=== PATIENT | male | born 1945 | race Caucasian/White ===

== ENCOUNTER 2017-04-08 06:50 | Outpatient (CLI) ==
--- NOTE | 2017-04-08 10:53 | MRI ---
EXAM: MRI right shoulder without contrast COMPARISON: None available. HISTORY: Right shoulder pain. TECHNIQUE: Multiplanar noncontrast MR images of the right shoulder were acquired using a 1.2 Charmaine magnet. The sagittal T2W sequence was repeated due to patient motion artifact. FINDINGS: No recent radiographs of the right shoulder are available for comparison and radiographic correlation is recommended. There is moderate subscapularis and supraspinatus tendinosis with minimal infraspinatus tendinosis. Minimal bursal surface fraying of the supraspinatus from the level of the acromion through the inse rtional fibers. Small partial-thickness/intrasubstance tear of the distal subscapularis. No full-t hickness rotator cuff tear or tendon retraction. No significant fluid in the subacromial/subdeltoid bursa. Limited assessment glenoid labrum on this non arthrographic study. Linear hyperintense signal withi n the substance of the superior/posterosuperior glenoid labrum extending along the chondrolabral miquel ction extending peripherally as seen on the coronal sequences which may represent a small tear. Que stion sublabral foramen (anatomic variant) at the level of the anterosuperior labrum. Mild glenohum eral joint osteoarthrosis without acute fracture dislocation. Small joint effusion. The long head of the biceps is located within the bicipital groove with tendinosis/partial tear and tenosynovitis. Moderate hypertrophic degenerative changes of the acromioclavicular joint with some lateral downslop ing of the acromion resulting mild distortion of the underlying supraspinatus. No evidence of an os acromiale or abnormal widening of the acromioclavicular joint space. Mild diffuse muscle atrophy. No soft tissue mass identified. IMPRESSION: 1. Moderate rotator cuff tendinosis. Bursal surface fraying of the supraspinatus as well as a smal l partial-thickness/intrasubstance tear of the distal subscapularis. No full-thickness rotator cuff tear or tendon retraction. 2. Findings concerning for a tear of the superior to posterior glenoid labrum on this non arthrogra phic study. Question sublabral foramen versus anterior extension of a tear at the level of the ante rosuperior labrum. Correlate clinically and consider MR arthrography. 3. Tendinosis/partial tear and tenosynovitis of the long head biceps. 4. Hypertrophic degenerative changes of the acromioclavicular joint representing potential source o f subacromial impingement.
== END 2017-04-08 06:51 | disposition home or self-care (01) ==
LOC: RAD 06:50
PROVIDERS: ATTEND Internal Medicine
DX: M25.511 Pain in right shoulder (principal)

== ENCOUNTER 2017-07-09 14:27 | Outpatient (CLI) ==
--- NOTE | 2017-07-09 15:05 | DI ---
EXAM: Radiographs, left knee HISTORY: Left knee pain. COMPARISON: None available. TECHNIQUE: Two views. FINDINGS: Bone mineralization is normal. There is no fracture or dislocation. The joint spaces are maintained. Minimal posterior patellar marginal osteophyte formation noted. No focal soft tissue a bnormality is seen. IMPRESSION: Minimal patellofemoral osteoarthritis.
--- NOTE | 2017-07-09 15:05 | DI ---
EXAM: Left hip, two views, 07/09/2017 HISTORY: Pain COMPARISON: None. FINDINGS / IMPRESSION: Surgical clips are present in the projection of the left lower pelvis. Mild osteoarthritic degenerative change of the left hip. Joint space narrowing with osteophyte forma tion. Normal anatomic alignment is maintained. There is no fracture or dislocation No acute osseous abnormality.
== END 2017-07-09 14:28 | disposition home or self-care (01) ==
LOC: RAD 14:27
PROVIDERS: ATTEND Internal Medicine
DX: M25.562 Pain in left knee (principal); M25.552 Pain in left hip

== ENCOUNTER 2018-07-23 06:45 | Outpatient (CLI) | END 2018-07-23 06:46 | disposition home or self-care (01) | LOC: CAR 06:45 | PROVIDERS: ATTEND Internal Medicine | DX: R06.02 Shortness of breath (principal); R07.9 Chest pain, unspecified | CPT/HCPCS: 93005; 93010 ==

== ENCOUNTER 2018-07-24 06:33 | Outpatient (CLI) ==
--- NOTE | 2018-07-24 10:13 | STECHOSEST ---
Date of Test: 07/24/18 Ordering Physician: DR. BIANKA ENGLAND Occupation : RETIRED Reason for Exam: SOB, CHEST PAIN, CABG 2002 Height: 67" Weight: 158 LBS Current Medications: PRAVASTATIN, NORVASC, ZIAC, LOSARTAN, METFORMIN Resting EKG: SINUS RHYTHM/ NO ACUTE CHANGES Target Heart Rate: 124/146 S-T SEGMENT STAGE MPH/GRADE HEART RATE BPM BLOOD PRESSURE mmhg RHYTHM +/- ELEVATION DEPRESSION SYMPTOMS At Rest 60 BPM 132/84 SR X NONE 1 1.7/10% 100 BPM SR X NONE 2 2.5/12% 118 BPM SR X NONE 3 3.4/14% 4 4.2/16% 5 5.0/18% Immediately after 125 BPM 138/60 BPM SR X NONE Minutes Post Exercise 7:00 69 BPM 138/74 MMHG SR X NONE Minutes Post Exercise Total Time: 6:23 Maximum Heart Rate Reached: 125 BPM Reason for Termination: ACHIEVED TARGET HR 95% Oxygen saturation on room air with exercises MET.S 8.1 INTERPRETATION 1. NO EVIDENCE OF ISCHEMIA BY ST-T WAVE 2. NO CHEST PAIN OR DISCOMFORT 3. BLOOD PRESSURE RESPONSE: NORMAL AT REST AND POST EXERCISE 4. LESS ISOLATED PVC'S WITH EXERCISE SESTAMIBI TO FOLLOW MTDD
--- NOTE | 2018-07-24 10:20 | ECHO2D ---
Date of Exam: 07/24/18 Ordering Physician: DR. BIANKA ENGLAND Room #: OP Reason for Echo: SOB, CHEST DISCOMFORT M-Mode Normal Adult Results LV Dimensions Normal Adult Results AoV Opening excursions >1.6 >1.6 LVEDD-base- 3.5-5.8 4.6 Ao root dimensions 2.0-3.7 3.3 LVESD-base- 3.1-4.6 L. Atrium dimensions 1.9-3.8 4.3 Post. Wall thickness 0.8-1.1 1.1 IV septum (thickness) 0.7-1.2 1.2 Post. Wall excursion 0.72-1.3 NORMAL Septal motion NORMAL Systolic motion R. Ventricular cavity 1.5-2.0 NORMAL LVEF 60% 60% Paradoxical septal wall motion NORMAL 2-D : 2-D M Mode Echocardiogram was performed using apical four chamber and left parasternal long and short axis views. Mitral, tricuspid and aortic valves appear to be normal. Contractility of the left ventricle seems to be normal, so is the cavity size. ENLARGED LEFT ATRIAL CAVITY. Aortic root appears to be normal. There is no pericardial effusion. There is no thrombus noted in the left ventricular or left aortic cavity. No mitral valve prolapse noted. M-MODE: MV: NORMAL AV: NORMAL TV: NORMAL PV: CHAMBER SIZE: ENLARGED LEFT ATRIAL CAVITY WALL MOTION: NORMAL PERICARDIUM: NORMAL INTERPRETATION: 1. BORDERLINE LEFT VENTRICULAR HYPERTROPHY 2. NORMAL VALVES 3. NORMAL LEFT VENTRICULAR CONTRACTILITY MTDD
--- NOTE | 2018-07-24 11:02 | NM ---
EXAM: Myocardial perfusion imaging HISTORY: Chest pain and shortness of breath COMPARISON: None. TECHNIQUE: Patient was injected 11.5 mCi of Tc99m Sestamibi intravenously while at rest. SPECT imagi ng of the heart was acquired. Patient was stressed on a treadmill using Gerald protocol and at peak ex ercise injected 30.2 mCi of Tc99m Sestamibi intravenously. Another SPECT imaging of the heart was ac quired. Gated cardiac study was performed. FINDINGS: Post stress study shows normal left ventricular cavity size. Radioisotope distribution is homogeneous in the left ventricle myocardium. No evidence of exercise induced reversible ischemia. No fixed defect is visualized. The left ventricular ejection fraction is 67% and wall motion is norm al. IMPRESSION: Normal study
--- NOTE | 2018-07-27 09:53 | ECHOSTRESS ---
Date of Exam: 07/24/18 Ordering Physician: DR. BIANKA ENGLAND Reason for Echo: SOB, CHEST PAIN, STRESS TEST--NO ISCHEMIA M-Mode Normal Adult Results LV Dimensions Normal Adult Results AoV Opening excursions >1.6 LVEDD-base- 3.5-5.8 Ao root dimensions 2.0-3.7 LVESD-base- 3.1-4.6 L. Atrium dimensions 1.9-3.8 Post. Wall thickness 0.8-1.1 IV septum (thickness) 0.7-1.2 Post. Wall excursion 0.72-1.3 Septal motion Systolic motion R. Ventricular cavity 1.5-2.0 LVEF 60% Paradoxical septal wall motion 2-D: NORMAL LEFT VENTRICULAR CONTRACTILITY--RESTING AND POST EXERCISE M-MODE: MV: AV: TV: PV: CHAMBER SIZE: WALL MOTION: NORMAL LEFT VENTRICULAR CONTRACTILITY--RESTING AND POST EXERCISE PERICARDIUM: INTERPRETATION: 1. NORMAL LEFT VENTRICULAR CONTRACTILITY--RESTING AND POST EXERCISE MTDD
== END 2018-07-24 06:34 | disposition home or self-care (01) ==
LOC: CAR 06:33
PROVIDERS: ATTEND Internal Medicine
DX: R06.02 Shortness of breath (principal); R07.9 Chest pain, unspecified

== ENCOUNTER 2018-11-23 14:51 | Outpatient (CLI) | payer OTHER | END 2018-11-23 14:52 | disposition home or self-care (01) | LOC: CAR 14:51 | PROVIDERS: ATTEND Psychiatry & Neurology Sleep Medicine | DX: G47.33 Obstructive sleep apnea (adult) (pediatric) (principal) | CPT/HCPCS: 95810 ==

== ENCOUNTER 2018-12-21 15:09 | Outpatient (CLI) | END 2018-12-21 15:10 | disposition home or self-care (01) | LOC: CAR 15:09 | PROVIDERS: ATTEND Psychiatry & Neurology Sleep Medicine | DX: G47.33 Obstructive sleep apnea (adult) (pediatric) (principal) | CPT/HCPCS: 95811 ==

== ENCOUNTER 2018-12-29 07:47 | Day surgery (SDC) ==
[2018-12-29 08:10] VITALS: TEMP 97
[2018-12-29] MEDS ORDERED: LIDOCAINE 1% 20 ML MDV ID STA (08:10)
[2018-12-29] MEDS ORDERED: DIPRIVAN 20 ML VIAL IVP ONE (09:55)
[2018-12-29] MEDS ORDERED: VERSED ONE (09:55)
--- NOTE | 2018-12-30 14:45 | OP ---
INDICATIONS FOR PROCEDURE: 73-year-old gentleman presents for a screening colonoscopy, last had a colonoscopy greater than 10 years ago. MEDICATIONS: SEE ANESTHESIA NOTES. PROCEDURE: COLONOSCOPY, SNARE POLYPECTOMY. REPORT: The risks, benefits, alternatives and limitations were discussed in detail with the patient. Informed consent was obtained. After adequate sedation was achieved, a digital rectal exam revealed good tone, no masses. The colonoscope was introduced into the rectum and advanced under direct visual guidance to the cecum. The cecum was identified by the appendiceal orifice and IC valve. In the cecum, there was a small 5 or 6 mm polyp that was sessile. I removed this by snare technique. I then slowly withdrew the scope in a circumferential manner examining the mucosa quite carefully. I looked on the proximal and distal side of folds and flexures as best as possible. I was able to retroflex the scope in the right colon and left colon to increase visualization. At the hepatic flexure on the distal side there was a 5 or 6 mm sessile polyp that I removed by snare technique. In the distal sigmoid there was a slightly raised 5 or 6 mm polyp and I removed it by snare technique. In the distal rectum there is a semi sessile 8 to 9 mm somewhat lobulated polyp - I removed this by snare technique. No other abnormalities were noted including on retroflex view of the anal canal. The prep was adequate. There was some mucusy adherent stool scattered throughout the colon, I washed and suctioned this off as best as possible. The withdrawal time was 10 minutes and 14 seconds. The patient tolerated the procedure well with stable vital signs and pulse oximetry throughout. IMPRESSION: 1. Four (4) polyps removed. RECOMMENDATIONS: 1. High fiber diet. 2. Office visit as needed. 3. Await polyp pathology, if everything is benign as expected, I recommend a repeat colonoscopy examination again in 3 years, sooner if signs or symptoms would indicate otherwise. CC: DR. SAMANTA MAXWELL
[2018-12-31 14:47] VITALS: BP 132/676
== END 2018-12-29 11:10 | disposition home or self-care (01) ==
LOC: SURG 07:47
PROVIDERS: ATTEND Internal Medicine Gastroenterology
DX: Z12.11 Encounter for screening for malignant neoplasm of colon (principal); K63.5 Polyp of colon; D12.0 Benign neoplasm of cecum; D12.7 Benign neoplasm of rectosigmoid junction; D12.4 Benign neoplasm of descending colon; D12.3 Benign neoplasm of transverse colon

== ENCOUNTER 2019-02-17 11:34 | Outpatient (CLI) ==
--- NOTE | 2019-02-17 17:03 | MRI ---
EXAM: MRI of the right hip without contrast COMPARISON: None available. HISTORY: Low back pain with radiation to the right lower extremity. Right hip pain. TECHNIQUE: Multiplanar noncontrast MR images of the pelvis/hips were acquired using a 1.2 Charmaine magn et. Large field of view imaging was employed on the axial and coronal sequences with inclusion both the right and left hips in the field of view with sagittal images obtained only through the right hip . The submitted images are mildly limited by patient motion artifact. Dedicated MRI of the lumbar s carlyle was also performed and that report will be dictated separately by different physician. FINDINGS: No recent radiographs of the pelvis/hips available for comparison and radiographic correla tion is recommended. There is marked intervertebral disc space narrowing with facet hypertrophy and levocurvature involvin g the visualized portions lower lumbar spine. Please see the separately dictated MRI of the lumbar s fernanda report. Mild to moderate degenerative changes of the hips bilaterally with joint space narrowing marginal ost eophytes. Small right hip pain and minimal left hip joint effusions, nonspecific. Mild to moderate degenerative changes of the sacroiliac joints without evidence of active sacroiliitis or ankylosis. Mild to moderate degenerative changes of the pubic symphysis. There is no evidence of an acute fract ure, osteomyelitis or osteonecrosis. Edema throughout the soft tissues overlying the greater trochanters bilaterally without a drainable g reater trochanteric bursal collection. There is hamstring tendinosis bilaterally which is more sever e on the right with superimposed partial-thickness tear of the right common hamstring tendon at its i schial tuberosity attachment. There is some edema throughout the adjacent soft tissues without a ful l-thickness tear or tendon retraction. Gluteus minimus tendinosis and enthesopathy bilaterally. Mil d diffuse muscle atrophy. There is marked enlargement of the prostate gland which measures 5.3 x 4.3 x 4.1 cm with heterogeneou s signal throughout the gland. No pathologically enlarged pelvic lymph nodes. The sciatic nerves ar e unremarkable in appearance throughout their visualized course bilaterally. Subcutaneous edema post eriorly. IMPRESSION: 1. No acute osseous injury. Mild to moderate degenerative changes as described. 2. Marked degenerative changes of the lower lumbar spine. Please see the separately dictated MRI burton ar spine report. 3. Small right hip and minimal left hip joint effusions, nonspecific. 4. Hamstring tendinosis bilaterally which is more severe on the right with partial-thickness tear of the right common hamstring tendon. No full-thickness tear or tendon retraction. Gluteus minimus te ndinosis and enthesopathy bilaterally. Mild diffuse muscle atrophy. 5. Marked enlargement of the prostate gland which is nonspecific and may be related to benign prosta tic hyperplasia though correlation with physical examination and prostate specific antigen levels is recommended.
--- NOTE | 2019-02-18 23:56 | MRI ---
EXAM: Lumbar spine MRI without contrast. HISTORY: Low back pain that radiates to right lower extremity. Right hip pain. COMPARISON: Lumbar spine MRI 12/16/[address] scan 12/23/2008. TECHNIQUE: Multiplanar, multisequence MR images were acquired of the lumbar spine without contrast. FINDINGS: Five non-rib bearing lumbar vertebra are present. Conus medullaris ends at L2 and has nor mal morphology and signal intensity. Canal diameter is developmentally narrow. There is mild mid burton mbar levoscoliosis centered at L3-4 and there is 2 mm retrolisthesis of L2 on L3, 1.5 mm retrolisthes is of L3 on L4 and 2 mm retrolisthesis of L4 on L5. The lumbar vertebra are normal in height. Intri nsic bone marrow signal is mildly heterogeneous with a small areas of bright T1 and T2 signal fatty i nfiltration. Small ventral and lateral endplate osteophytes are present and there are moderate to la rge left anterolateral endplate osteophytes at L1-2, moderate left anterolateral endplate osteophytes at L2-3, moderate right far lateral L4-5 and moderate left far lateral L5-S1 endplate osteophytes. There is a diffuse disc osteophyte complex that is asymmetric to the right at L3-4 and L4-5 with mode rate to marked right lateral disc space narrowing, mild to moderate right lateral and posterolateral endplate irregularity with small chronic Schmorl's nodes, type 2 endplate changes and disc desiccatio n with vacuum phenomenon. These findings have mild to moderately progressed at L4-5, compared to the 2012 MRI. At L5-S1, there is a diffuse disc osteophyte complex that is asymmetric to the left with moderate right and large left far lateral endplate osteophytes, mild diffuse endplate irregularity w ith marked disc space narrowing, disc desiccation, vacuum phenomenon and moderate midline and left la teral type 2 endplate changes. There is desiccation of the lumbar intervertebral discs and there is mild endplate irregularity with small chronic Schmorl's nodes at T12-L1, L1-2 and L2-3. Mild disc sp sunil narrowing is present at L2-3. The partially visualized liver, spleen, adrenal glands and right kidney are unremarkable. There is a probable small 3.8 mm left renal cyst. There are no paravertebral masses. Small osteophytes are pr esent along the anterior sacroiliac joints bilaterally. L1-2: There is a mild bilobed disc bulge that mildly effaces the left ventral thecal sac without spi nal stenosis. Neural foramina are patent. L2-3: There is retrolisthesis of L2 on L3 and there is a mild to moderate diffuse spondylotic disc b ulge that is is asymmetric to the left with a small to moderate central and left paracentral disc ext rusion with extension of the paracentral component 7 mm below the disc level and partially into the m idline superior endplate of L3. There is a left lateral/far lateral disc protrusion that narrows the inferior left neural foramen and encroaches on the exiting left L2 nerve. Mild bilateral facet and ligamentum flavum hypertrophy and small bilateral facet effusions are present. There is mild spinal stenosis, bilateral lateral recess stenosis, greater on the left and mild left and mild to moderate r ight neural foraminal stenosis. AP diameter of the thecal sac is 9.1 mm. L3-4: There is a moderate diffuse disc osteophyte complex that is asymmetric to the right and mild b ilateral facet and ligamentum flavum hypertrophy. There is a moderate right posterolateral disc extr usion with 1.1 cm inferior migration in the right lateral recess. This compresses the descending rig ht L4 nerve roots. There is mild spinal stenosis, right lateral recess stenosis and mild left and mo derately severe right neural foraminal stenosis with compression of the traversing right L3 nerve. A P diameter of the thecal sac is 8 mm. L4-5: There is a moderate diffuse disc osteophyte complex that is asymmetric to the right which encr oaches on the right L4 nerve exiting the neural foramen and there is a small central and right parace ntral disc protrusion that extends to the medial right neural foramen. Moderate bilateral hypertroph ic facet arthropathy and ligamentum flavum hypertrophy is present, greater on the right. This causes moderately severe spinal stenosis, bilateral lateral recess stenosis with encroachment on the L5 ner ve roots and mild to moderate left and moderate right neural foraminal stenosis with encroachment on the traversing right L4 nerve. AP diameter of the thecal sac is 5.3 mm. L5-S1: There is a moderate diffuse disc osteophyte comple that narrows the inferior neural foramina b ilaterally and encroaches on both exiting L5 nerves, greater on the left. There is a small to modera te central disc protrusion. These findings cause mild to moderate right and moderately severe left n eural foraminal stenosis with encroachment on the traversing left L5 nerve. There is no central samson l stenosis. IMPRESSION: 1. Moderate lumbar degenerative spondylosis most significant from L3-4 to L5-S1 which has mild to mo derately progressed at L4-5 compared to the prior MRI. 2. Small to moderate central/left paracentral disc extrusion L2-3, small left lateral/far lateral di sc protrusion L2-3 that encroaches on the left L2 nerve exiting the neural foramen, small central/rig ht paracentral disc protrusion L4-5, small to moderate central disc protrusion L5-S1 and moderate rig ht posterolateral disc extrusion L3-4 that encroaches on the descending right L4-8 nerve roots. 3. Mild rotatory mid lumbar levoscoliosis centered at L3-4. 4. Mild spinal stenosis L2-3 and L3-4 and moderately severe spinal stenosis L4-5. 5. Multilevel foraminal stenosis.
== END 2019-02-17 11:35 | disposition home or self-care (01) ==
LOC: RAD 11:34
PROVIDERS: ATTEND Internal Medicine
DX: M54.5 Low back pain (principal); M25.551 Pain in right hip

== ENCOUNTER 2019-02-24 08:30 | Outpatient (CLI) | payer OTHER ==
--- NOTE | 2019-02-24 10:05 | DI ---
EXAM: Double contrast upper GI HISTORY: Dysphagia. Technique: Patient was given gas crystals. Patient was then given oral barium and multiple spot gifty ms of the esophagus, stomach and duodenum were obtained in various projections. Findings: The course and caliber of the esophagus are within normal limits. No mucosal lesions or f illing defects identified. Small inconsistent hiatal hernia. Gastroesophageal reflux was observed. The contour of the stomach is within normal limits. No obvious gastric ulceration identified. The c ourse and caliber of the duodenum is within normal limits with no wall thickening. 2 cm duodenal div erticulum. No extravasation of contrast material. No gastric outlet obstruction. Impression: 1. Small inconsistent hiatal hernia and gastroesophageal reflux. 2. Duodenal diverticulum
== END 2019-02-24 08:31 | disposition home or self-care (01) ==
LOC: RAD 08:30
PROVIDERS: ATTEND Internal Medicine
DX: R13.10 Dysphagia, unspecified (principal)

== ENCOUNTER 2019-03-08 08:31 | Outpatient (CLI) ==
--- NOTE | 2019-03-08 09:40 | US ---
EXAM: Bilateral carotid artery Doppler History: Carotid stenosis and dizziness. Comparison: Carotid Doppler 08/30/2011 Technique: Multiple sonographic images through the bilateral internal carotid arteries were obtained . Color duplex Doppler was used to interrogate vascular flow. Findings: The right ICA peak systolic velocity is within normal limits measuring 48 cm/sec. The right ICA/cca PSV ratio is normal at 0.60. The right vertebral artery is patent and demonstrates antegrade flow. Mullins scale images demonstrate mild plaque buildup within the right internal carotid artery. The left ICA peak systolic velocity is within normal limits measuring 71 cm/sec. The left ICA/cca PS V ratio is normal at 1.0. The left vertebral artery is patent and demonstrates antegrade flow. Mullins scale images demonstrate mild plaque buildup within the left internal carotid artery Impression: No significant hemodynamic stenosis of the bilateral internal carotid arteries
== END 2019-03-08 08:32 | disposition home or self-care (01) ==
LOC: RAD 08:31
PROVIDERS: ATTEND Internal Medicine
DX: R42 Dizziness and giddiness (principal); I65.29 Occlusion and stenosis of unspecified carotid artery

== ENCOUNTER 2019-05-18 11:00 | Outpatient (RCR) | payer OTHER ==
--- NOTE | 2019-04-22 12:06 | RS.OPPTDN ---
Subjective Date of Note: 04/22/19 Visit #: 4 Number of visits approved by Insurance: na Date of Evaluation: 04/14/19 Payer Source: MEDICARE Treatment Diagnosis: Low back pain, right LE pain Current Subjective/complaints:: Pt reports significant improvement in pain after last session. States he did more driving yesterday without increased back or right hip pain. States he is working on HEP. Pain Assessment - Pain Description Pain Location: lowback, right hip/ischial tub area Pain Description: Aching Current Pain Intensity: mild Worst Pain Intensity: mod with activity - Treatment Modality: US with ES (Comb.) Parameters/Method Applied: [id number] total. US at 1.5w/cm2 and ES to 21p.v. [id number] to the bilateral lumbar paraspinals, then US at 1.5w/cm2 and ES to 11- 13p.v. to the right mid glut to the origin of the hamstring prior to EX. Patient Position: Left Sidelying - Heat/Cryotherapy Treatment: Hot Pack ([id number] to the lowback and right prox hamstring. ) Interventions - Exercise/Activities/Manual Therapy Exercises/Activities: [id number] Assisted stretching of the bilateral hamstrings, SKTC, DKTC, LTR. Also, piriformis and figure 4 hip stretch. Total minutes of Exercise: 10mins Manual Therapy: NA HOME EXERCISE PROGRAM: stretching of bilateral hamstrings, SKTC, DKTC, LTR, and pelvic tilts. - Charges Timed Code Treatment Minutes: 34mins Total Treatment Time: 54mins Procedures billed for this date of service:: HP, USCOM, EX Assessment: Patient reporting significant improvement in pain following last session. Patient Education: Home Exercise Program Patient demonstrates compliance with HEP?: Yes Short Term Goals Goal #1: Patient independent and compliant with HEP. Goal to be met by: 04/28/19 Progress towards Goal:: Progressing Goal #2: Muscle tone of lumbar paraspinals decreased to moderate. Goal to be met by: 04/28/19 Goal #3: Low back pain less than constant. Goal to be met by: 04/29/19 Goal #4: Bilateral SLR to 35-40 degrees. Goal to be met by: 04/29/19 Jail Goals Goal #1: Pt knows HEP and to continue ex's to maintain functional level at D/c. Goal to be met by: 05/19/19 Goal #2: Score on Oswestry LBP improved to 20 Goal to be met by: 05/19/19 Goal #3: Pt able to walk community distances with minimal pain in low back/ right LE. Goal to be met by: 05/19/19 Goal #4: Pt to demo good understanding of body mechanics and back safety. Goal to be met by: 05/19/19 Plan Dates of Clothing Sorter Goals: 05/19/19 Expiration date of current Insurance Approval:: 05/19/19 PLAN: Continue modalities and progress exercise to reduce pain and increase functional activity.
--- NOTE | 2019-04-27 10:55 | RS.OPPTDN ---
Subjective Date of Note: 04/27/19 Visit #: 5 Number of visits approved by Insurance: na Date of Evaluation: 04/14/19 Payer Source: MEDICARE Treatment Diagnosis: Low back pain, right LE pain Current Subjective/complaints:: Reports significant reduction in back and right glut area pain. States he has not been mehta-hogging the last few days. Pain Assessment - Pain Description Pain Location: lowback and right glut area at hamstring origin. Pain Description: Aching Current Pain Intensity: mild - Treatment Modality: US with ES (Comb.) Parameters/Method Applied: [id number] total. US at 1.5w/cm2 and Estim 12p.v. to the bilateral lumbar paraspinals [id number], then right glut region US at 1.5w/cm2 and Estim at 14p.v. to the right glut region x8mins. Patient Position: Left Sidelying - Heat/Cryotherapy Treatment: Hot Pack ([id number] to the lowback and right gluteal region prior to USCOM and EX. Patient in supine. ) Interventions - Exercise/Activities/Manual Therapy Exercises/Activities: [id number] Assisted stretching of the bilateral hamstrings, SKTC, DKTC, LTR, piriformis, and figure 4 hip stretch. Isometric hip add and glut sets. Total minutes of Exercise: 13mins Manual Therapy: NA HOME EXERCISE PROGRAM: stretching of bilateral hamstrings, SKTC, DKTC, LTR, and pelvic tilts. - Charges Timed Code Treatment Minutes: 31mins Total Treatment Time: 50mins Procedures billed for this date of service:: HP, USCOM, EX Assessment: Patient progressing with HEP and reports pain reduction. Patient Education: Body/Joint mechanics, Home Exercise Program Patient demonstrates compliance with HEP?: Yes Short Term Goals Goal #1: Patient independent and compliant with HEP. Goal to be met by: 04/28/19 Progress towards Goal:: Progressing Goal #2: Muscle tone of lumbar paraspinals decreased to moderate. Goal to be met by: 04/28/19 Goal #3: Low back pain less than constant. Goal to be met by: 04/29/19 Progress towards Goal:: Progressing Goal #4: Bilateral SLR to 35-40 degrees. Goal to be met by: 04/29/19 Intermediate Goals Goal #1: Pt knows HEP and to continue ex's to maintain functional level at D/c. Goal to be met by: 05/19/19 Progress towards goal: Progressing Goal #2: Score on Oswestry LBP improved to 20 Goal to be met by: 05/19/19 Goal #3: Pt able to walk community distances with minimal pain in low back/ right LE. Goal to be met by: 05/19/19 Progress towards goal: Progressing Goal #4: Pt to demo good understanding of body mechanics and back safety. Goal to be met by: 05/19/19 Plan Dates of Cloud Consultant Goals: 05/19/19 Expiration date of current Insurance Approval:: 05/19/19 PLAN: Continue modalities and progress exercise to reduce pain and increase functional activity level.
--- NOTE | 2019-04-29 12:50 | RS.OPPTDN ---
Subjective Date of Note: 04/29/19 Visit #: 6 Number of visits approved by Insurance: na Date of Evaluation: 04/14/19 Payer Source: MEDICARE Treatment Diagnosis: Low back pain, right LE pain Current Subjective/complaints:: Patient reports his LB and right glut/upper HS pain has continued to improved. Patient states he is walking more and noticing less tension in the lowback or pain int he right hip/glut. Pain Assessment - Pain Description Pain Location: back and right glut/HS origin Current Pain Intensity: LB 2-3/10, right glut area 5/10 - Treatment Modality: US with ES (Comb.) Parameters/Method Applied: 16mins total. US at 1.5w/cm2 and ES at 12-14 p.v. to bilateral lumbar paraspinals and to the right glut area with focus at piriformis insersion. Patient Position: Left Sidelying - Heat/Cryotherapy Treatment: Hot Pack ([id number] to the LB and right glut/HS origin area prior to USCOM. Patient in supine. ) Interventions - Exercise/Activities/Manual Therapy Exercises/Activities: [id number] Assisted stretching of the bilateral hamstrings, SKTC, DKTC, LTR, and piriformis stretch. Isometric hip add and glut sets. Began bridging. Total minutes of Exercise: 10mins Manual Therapy: NA HOME EXERCISE PROGRAM: stretching of bilateral hamstrings, SKTC, DKTC, LTR, and pelvic tilts. Bridging. - Charges Timed Code Treatment Minutes: 10mins Total Treatment Time: 40mins Procedures billed for this date of service:: HP, USCOM, EX Assessment: Patient progressing well with reports of pain reduction and increase in functional activity level. Patient Education: Home Exercise Program Comments: Began patient education of body mechanics. Patient demonstrates compliance with HEP?: Yes Short Term Goals Goal #1: Patient independent and compliant with HEP. Goal to be met by: 04/28/19 Progress towards Goal:: Progressing Goal #2: Muscle tone of lumbar paraspinals decreased to moderate. Goal to be met by: 04/28/19 Progress towards Goal:: Progressing Goal #3: Low back pain less than constant. Goal to be met by: 04/29/19 Progress towards Goal:: Progressing Goal #4: Bilateral SLR to 35-40 degrees. Goal to be met by: 04/29/19 Progress towards Goal:: Progressing Snf Goals Goal #1: Pt knows HEP and to continue ex's to maintain functional level at D/c. Goal to be met by: 05/19/19 Progress towards goal: Progressing Goal #2: Score on Oswestry LBP improved to 20 Goal to be met by: 05/19/19 Goal #3: Pt able to walk community distances with minimal pain in low back/ right LE. Goal to be met by: 05/19/19 Progress towards goal: Progressing Goal #4: Pt to demo good understanding of body mechanics and back safety. Goal to be met by: 05/19/19 Progress towards goal: Progressing Plan Dates of Airborne Weapons Technical Manager Goals: 05/19/19 Expiration date of current Insurance Approval:: 05/19/19 PLAN: Continue modalities and progress exercise to increase functional mobility and activity level.
--- NOTE | 2019-05-04 12:08 | RS.OPPTDN ---
Subjective Date of Note: 05/04/19 Visit #: 7 Number of visits approved by Insurance: na Date of Evaluation: 04/14/19 Payer Source: MEDICARE Treatment Diagnosis: Low back pain, right LE pain Current Subjective/complaints:: Billy reports seeing a lot of progress over the last few days. States he has been able to do more driving and do some mehta- hogging without aggravating his pain. Pain Assessment - Pain Description Pain Location: right lowback and gluteal area at ischial tuberosity Current Pain Intensity: mild, no pain following treatment and exercise. - Treatment Modality: US with ES (Comb.) Parameters/Method Applied: [id number] with US at 1.5w/cm2 and Estim to 13-15p.v. to the right LB and into gluteal region. Patient Position: Left Sidelying - Heat/Cryotherapy Treatment: Hot Pack ([id number] to the LB and right gluteal region and HS origin. Patient in supine. ) Interventions - Exercise/Activities/Manual Therapy Exercises/Activities: [id number] Assisted stretching of the bilateral hamstrings, SKTC, DKTC, LTR, and piriformis stretch. Isometric hip add, alt hip flexion, isometric hip flexion, and glut sets. Bridging. Total minutes of Exercise: 16mins Manual Therapy: NA HOME EXERCISE PROGRAM: stretching of bilateral hamstrings, SKTC, DKTC, LTR, and pelvic tilts. Bridging. - Charges Timed Code Treatment Minutes: 16mins Total Treatment Time: 42mins Procedures billed for this date of service:: HP, USCOM, EX Assessment: Patient reporting significant progress with treatment. States he is doing more functional daily activities without increased pain. Patient Education: Home Exercise Program Patient demonstrates compliance with HEP?: Yes Short Term Goals Goal #1: Patient independent and compliant with HEP. Goal to be met by: 04/28/19 Progress towards Goal:: Progressing Goal #2: Muscle tone of lumbar paraspinals decreased to moderate. Goal to be met by: 04/28/19 Progress towards Goal:: Progressing Goal #3: Low back pain less than constant. Goal to be met by: 04/29/19 Progress towards Goal:: Progressing Goal #4: Bilateral SLR to 35-40 degrees. Goal to be met by: 04/29/19 Progress towards Goal:: Progressing Land Examiner Goals Goal #1: Pt knows HEP and to continue ex's to maintain functional level at D/c. Goal to be met by: 05/19/19 Progress towards goal: Progressing Goal #2: Score on Oswestry LBP improved to 20 Goal to be met by: 05/19/19 Goal #3: Pt able to walk community distances with minimal pain in low back/ right LE. Goal to be met by: 05/19/19 Progress towards goal: Progressing Goal #4: Pt to demo good understanding of body mechanics and back safety. Goal to be met by: 05/19/19 Progress towards goal: Progressing Plan Dates of Land Examiner Goals: 05/19/19 Expiration date of current Insurance Approval:: 05/19/19 PLAN: Progress exercise to reduce pain and return patient to PLOF.
--- NOTE | 2019-05-06 14:22 | RS.OPPTDN ---
Subjective Date of Note: 05/06/19 Visit #: 8 Number of visits approved by Insurance: na Date of Evaluation: 04/14/19 Payer Source: MEDICARE Treatment Diagnosis: Low back pain, right LE pain Current Subjective/complaints:: Patient reports some increased muscle tightness in the right lumbar paraspinals, but continued progress overall. Pain Assessment - Pain Description Pain Location: right mid glut, lowback Pain Description: Tightness, Aching Current Pain Intensity: mild Other Comments regarding Pain:: Reports mild to mod tightness at LB, mild pain at the right mid glut - Treatment Modality: US with ES (Comb.) Parameters/Method Applied: [id number] US at 1.5w/cm2 and Estim to 9-12p.v. to the B lumb paraspinals and right gluteal region. - Heat/Cryotherapy Treatment: Hot Pack ([id number] to the lowback and right gluteal area at hamstring attatchment. Pt in supine. ) Interventions - Exercise/Activities/Manual Therapy Exercises/Activities: [id number] Assisted stretching of the bilateral hamstrings, SKTC, DKTC, LTR, and piriformis stretch. Isometric hip add, alt hip flexion, isometric hip flexion, and glut sets. Discussion of back safety and body mechanics. Advised patient to stretch daily and to work on progressing bridging. Total minutes of Exercise: 14mins Manual Therapy: NA HOME EXERCISE PROGRAM: stretching of bilateral hamstrings, SKTC, DKTC, LTR, and pelvic tilts. Bridging. - Charges Timed Code Treatment Minutes: 26mins Total Treatment Time: 50mins Procedures billed for this date of service:: HP, USCOM, EX Assessment: Patient increasing his functional activity level and consistently working on HEP. Patient Education: Home Exercise Program, Home Safety, Activity Modification Patient demonstrates compliance with HEP?: Yes Short Term Goals Goal #1: Patient independent and compliant with HEP. Goal to be met by: 04/28/19 Progress towards Goal:: Met Goal #2: Muscle tone of lumbar paraspinals decreased to moderate. Goal to be met by: 04/28/19 Progress towards Goal:: Met Goal #3: Low back pain less than constant. Goal to be met by: 04/29/19 Progress towards Goal:: Met Goal #4: Bilateral SLR to 35-40 degrees. Goal to be met by: 04/29/19 Progress towards Goal:: Partially Met Financial Services Director Goals Goal #1: Pt knows HEP and to continue ex's to maintain functional level at D/c. Goal to be met by: 05/19/19 Progress towards goal: Progressing Goal #2: Score on Oswestry LBP improved to 20 Goal to be met by: 05/19/19 Goal #3: Pt able to walk community distances with minimal pain in low back/ right LE. Goal to be met by: 05/19/19 Progress towards goal: Progressing Goal #4: Pt to demo good understanding of body mechanics and back safety. Goal to be met by: 05/19/19 Progress towards goal: Progressing Plan Dates of Financial Services Director Goals: 05/19/19 Expiration date of current Insurance Approval:: 05/19/19 PLAN: Continue modalities and progress exercise to reduce pain and increase functional activity level.
--- NOTE | 2019-05-11 14:24 | RS.OPPTDN ---
Subjective Date of Note: 05/11/19 Visit #: 9 Number of visits approved by Insurance: na Date of Evaluation: 04/14/19 Payer Source: MEDICARE Treatment Diagnosis: Low back pain, right LE pain Current Subjective/complaints:: Patient reports an increase in soreness across the lowback today, but states this happens from time to time. States that he is pleased with his continued progress with right hip/gluteal area pain. States he is doing more of his daily activities without pain limiting him. Pain Assessment - Pain Description Pain Location: lowback, right gluteal region Current Pain Intensity: mild to mod - Treatment Modality: US with ES (Comb.) Parameters/Method Applied: 14mins total with US at 1.5w/cm2 and Estim to 11- 12p.v. to the bilateral lower lumb paraspinals and right mid gluteal region. Patient Position: Left Sidelying - Heat/Cryotherapy Treatment: Hot Pack ([id number] to the lowback and right gluteal region prior to USCOM and EX. Patient in supine. ) Interventions - Exercise/Activities/Manual Therapy Exercises/Activities: [id number] Assisted stretching of the bilateral hamstrings, SKTC, LTR, and piriformis stretch. Isometric hip add, alt hip flexion, isometric hip flexion, and glut sets. Bridging. Began hip flexor stretch with LE dropped off edge of bed. Total minutes of Exercise: 28mins Manual Therapy: NA HOME EXERCISE PROGRAM: stretching of bilateral hamstrings, SKTC, DKTC, LTR, and pelvic tilts. Bridging. - Charges Timed Code Treatment Minutes: 28mins Total Treatment Time: 52mins Procedures billed for this date of service:: HP, USCOM, EX Assessment: Patient continues to increase his activity level and pain is improving. Patient Education: Home Exercise Program Patient demonstrates compliance with HEP?: Yes Short Term Goals Goal #1: Patient independent and compliant with HEP. Goal to be met by: 04/28/19 Progress towards Goal:: Met Goal #2: Muscle tone of lumbar paraspinals decreased to moderate. Goal to be met by: 04/28/19 Progress towards Goal:: Met Goal #3: Low back pain less than constant. Goal to be met by: 04/29/19 Progress towards Goal:: Met Goal #4: Bilateral SLR to 35-40 degrees. Goal to be met by: 04/29/19 Progress towards Goal:: Partially Met Fpc Goals Goal #1: Pt knows HEP and to continue ex's to maintain functional level at D/c. Goal to be met by: 05/19/19 Progress towards goal: Progressing Goal #2: Score on Oswestry LBP improved to 20 Goal to be met by: 05/19/19 Goal #3: Pt able to walk community distances with minimal pain in low back/ right LE. Goal to be met by: 05/19/19 Progress towards goal: Met Goal #4: Pt to demo good understanding of body mechanics and back safety. Goal to be met by: 05/19/19 Progress towards goal: Progressing Plan Dates of Fpc Goals: 05/19/19 Expiration date of current Insurance Approval:: 05/19/19 PLAN: Progress exercise to further increase patients functional activity level.
--- NOTE | 2019-05-19 16:04 | RS.OPPTDN ---
Subjective Date of Note: 05/18/19 Visit #: 10 Number of visits approved by Insurance: na Date of Evaluation: 04/14/19 Payer Source: MEDICARE Treatment Diagnosis: Low back pain, right LE pain Current Subjective/complaints:: Patient reports he is pleased with the progress he has made with therapy. States he is able to perform all light daily activities without increased pain. He reports being able to drive longer distances and mehta-hog with little discomfort. He states he is walking moderate distances and working on HEP consistently. Pain Assessment - Pain Description Pain Location: lowback, right S-I area Pain Description: Tightness Current Pain Intensity: mild LBP, little discomfort at the right S-I/glut region - Treatment Modality: US with ES (Comb.) Parameters/Method Applied: [id number] with US at 1.5w/cm2 and Estim to 12p.v., 10mins to bilateral lower lumbar paraspinals and 4mins to right mid glut. Patient Position: Left Sidelying - Heat/Cryotherapy Treatment: Hot Pack ([id number] to the lowback and right glut/prox hamstring. patient in supine. ) Interventions - Exercise/Activities/Manual Therapy Exercises/Activities: [id number] Assisted stretching of the bilateral hamstrings, SKTC, LTR, and piriformis stretch. Isometric hip add, alt hip flexion, isometric hip flexion, and glut sets. Bridging and right half bridge. Reviewed HEP and different positions of hip stretching. Total minutes of Exercise: 15mins Manual Therapy: NA HOME EXERCISE PROGRAM: stretching of bilateral hamstrings, SKTC, DKTC, LTR, and pelvic tilts. Bridging. - Charges Timed Code Treatment Minutes: 29mins Total Treatment Time: 49mins Procedures billed for this date of service:: HP, USCOM, EX Assessment: Patient has progressed well. His pain has been reduced significantly and increased his functional activity level. He met 8 of 8 treatment goals and was independent with HEP. Patient Education: Home Exercise Program, Education of Plan of Care Comments: Discussed and finalized all patient education and HEP. Patient demonstrates compliance with HEP?: Yes Short Term Goals Goal #1: Patient independent and compliant with HEP. Goal to be met by: 04/28/19 Progress towards Goal:: Met Goal #2: Muscle tone of lumbar paraspinals decreased to moderate. Goal to be met by: 04/28/19 Progress towards Goal:: Met Goal #3: Low back pain less than constant. Goal to be met by: 04/29/19 Progress towards Goal:: Met Goal #4: Bilateral SLR to 35-40 degrees. Goal to be met by: 04/29/19 Progress towards Goal:: Met Fci Goals Goal #1: Pt knows HEP and to continue ex's to maintain functional level at D/c. Goal to be met by: 05/19/19 Progress towards goal: Met Goal #2: Score on Oswestry LBP improved to 20 Goal to be met by: 05/19/19 Progress towards goal: Met Goal #3: Pt able to walk community distances with minimal pain in low back/ right LE. Goal to be met by: 05/19/19 Progress towards goal: Met Goal #4: Pt to demo good understanding of body mechanics and back safety. Goal to be met by: 05/19/19 Progress towards goal: Met Plan Dates of Archery Instructor Goals: 05/19/19 Expiration date of current Insurance Approval:: 05/19/19 PLAN: Discharge with HEP.
--- NOTE | 2019-05-20 13:43 | RS.OPPTDC ---
Date of Discharge: 05/19/19 Date of Evaluation: 04/14/19 Number of Visits: 10 Treatment Diagnosis: Low back pain, right LE pain Current Complaints/Gains: Mr. Logan is pleased with his improvement with therapy. He can now walk moderate distances and drive without increased back pain. 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 States he is doing nearly all ADL's and social activities with minimal to no discomfort. Functional Outcome Measure Oswestry LBP: 14 - G Codes & Severity Modifier G Codes & Modifier: NA Source of G Code score: Na Interventions - Exercise/Activities/Manual Therapy Exercises/Activities: NA Manual Therapy: NA HOME EXERCISE PROGRAM: stretching of bilateral hamstrings, SKTC, DKTC, LTR, and pelvic tilts. Bridging. - Objective Findings Observations,measurements,etc.: SLR to 45-50 degrees. Independent with HEP. Demonstrates minim to moderate muscle tone along the lumbar paraspinals. - Charges Timed Code Treatment Minutes: NA Total Treatment Time: Na Procedures billed for this date of service:: Na Assessment Assessment: Mr. Logan has made good progress. Score on Oswestry LBP scale improved from 42% impairment at initial evaluation to 14% impairment on last visit. He has met all his goals and feels pleased with his outcome. He is independent with his HEP and understands the benefit for him to continue his exercises. Short Term Goals Goal #1: Patient independent and compliant with HEP. Goal to be met by: 04/28/19 Progress towards Goal:: Met Goal #2: Muscle tone of lumbar paraspinals decreased to moderate. Goal to be met by: 04/28/19 Progress towards Goal:: Met Goal #3: Low back pain less than constant. Goal to be met by: 04/29/19 Progress towards Goal:: Met Goal #4: Bilateral SLR to 35-40 degrees. Goal to be met by: 04/29/19 Progress towards Goal:: Met Business Applications Analyst Goals Goal #1: Pt knows HEP and to continue ex's to maintain functional level at D/c. Goal to be met by: 05/19/19 Progress towards goal: Met Goal #2: Score on Oswestry LBP improved to 20 Goal to be met by: 05/19/19 Progress towards goal: Met Goal #3: Pt able to walk community distances with minimal pain in low back/ right LE. Goal to be met by: 05/19/19 Progress towards goal: Met Goal #4: Pt to demo good understanding of body mechanics and back safety. Goal to be met by: 05/19/19 Progress towards goal: Met Plan Reason for Discharge:: All Goals Met
== END 2019-05-22 23:59 ==
PROVIDERS: ATTEND Nurse Practitioner
DX: M41.20 Other idiopathic scoliosis, site unspecified (principal); M25.551 Pain in right hip; M51.37 Other intervertebral disc degeneration, lumbosacral region; M48.061 Spinal stenosis, lumbar region without neurogenic claudication